=== PATIENT | female | born 1995 | race African-American/Black ===

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

== ENCOUNTER 2018-01-30 12:56 | Emergency (ER) | payer OTHER ==
[~2018-01-30] VITALS: Ht 160 cm; Wt 44.5 kg
[~2018-01-30 12:56] MED LIST changes: +ULTRACET1 TABLET PO; +VALIUM2 MG PO
[2018-01-30 13:29] LABS: ALBUMIN 4.5 g/dL (3.2-4.8); CHLORIDE 107 mEq/L (99-109); POTASSIUM 4.2 mEq/L (3.7-5.4); SODIUM 137 mEq/L (136-147)
[2018-01-30 13:31] LABS: GLUCOSE 96 mg/dL (70-99); TOTAL PROTEIN 7.5 g/dL (6.4-8.3)
[2018-01-30 13:33] LABS: HEMATOCRIT 34.8 % (36.0-46.0); HEMOGLOBIN 10.4 G/DL (11.9-15.5); MCH 20.9 PG (29.0-34.0); MCHC 29.9 G/DL (30.0-36.0); PLATELET COUNT 291 K/uL (156-360); RBC DIS.WIDTH-CV 24.3 % (11.8-14.6); RBC DIS.WIDTH-SD 58.7 % (39-53); RED BLOOD COUNT 4.97 M/uL (3.80-5.20); TOTAL BILIRUBIN 0.2 mg/dL (0.0-1.0)
[2018-01-30 13:35] LABS: ALKALINE PHOSPHATASE 84 IU/L (3-129); CREATININE 0.7 mg/dL (0.6-1.3); GFR ESTIMATE (CALCULATED) > 59 mL/min/
[2018-01-30 13:36] LABS: UREA NITROGEN (BUN) 17 mg/dL (9-23)
[2018-01-30 13:37] LABS: AST (GOT) 19 IU/L (2-34)
[2018-01-30 13:38] LABS: ALT (GPT) 16 IU/L (3-49)
[2018-01-30 13:43] LABS: QUANTITATIVE HCG < 4.0 MIU/ML
[2018-01-30 14:05] LABS: LIPASE 12 U/L (1.0-51.0)
[2018-01-30 14:51] LABS: APPEARANCE CLEAR ((CLEAR)); BILIRUBIN NEGATIVE; BLOOD NEGATIVE; COLOR YELLOW ((YELLOW)); GLUCOSE (STRIP) NEGATIVE; KETONES NEGATIVE; LEUKOCYTES NEGATIVE; NITRITE NEGATIVE; PROTEIN (STRIP) NEGATIVE; SPECIFIC GRAVITY 1.027 (1.000-1.030); UCUL ADDED? NO; UROBILINOGEN 0.2 MG/DL (0.2-1.0)
[2018-01-30 14:52] VITALS: BP 118/70
== END 2018-01-30 14:54 | disposition home or self-care (01) ==
LOC: EME 12:56
DX: R10.13 Epigastric pain (principal); D64.9 Anemia, unspecified
CPT/HCPCS: 76705; 80053; 81003; 83690; 84702; 85027; 99281; 99284